=== PATIENT | female | born 1995 | race Caucasian/White ===

== ENCOUNTER 2017-04-11 14:28 | Emergency (ER) | payer OTHER ==
[~2017-04-11] VITALS: Ht 157.5 cm; Wt 66.0 kg
[~2017-04-11 14:28] MED LIST: AFRIN,GENASAL D15 ML BOTH NARES; AMOXICILLIN500 M1 PO; CEFDINIR300 MG PO; DEPO; DEPO-PROVER150 MG/ML IM; FLEXERIL5 MG PO; LORTAB 5-325 M1 EACH PO; MACROBID100 MG PO; MOTRIN600 MG PO; MOTRIN800 MG PO; NAPROSYN500 MG PO; NORCO 5/3251 TABLET PO; PREDNISONE20 MG PO; PYRIDIUM200 MG PO; TESSALON PERLE100 MG PO; ULTRAM50 MG PO; VENTOLIN HFA18 GM IH; ZANTAC150 MG PO; ZOFRAN4 MG PO
[2017-04-11] MEDS ORDERED: ENDOCET 5-3251 EACH PO (17:10)
[2017-04-11] MEDS ORDERED: MOTRIN600 MG PO (17:10)
[2017-04-11 17:24] VITALS: BP 141/86
== END 2017-04-11 17:48 | disposition home or self-care (01) ==
LOC: EME 14:28
DX: S83.91XA Sprain of unspecified site of right knee, initial encounter (principal); X50.1XXA Overexertion from prolonged static or awkward postures, initial encounter; Z72.0 Tobacco use
CPT/HCPCS: 73564; 99281; 99284